=== PATIENT | female | born 1970 | race Caucasian/White ===

== ENCOUNTER 2020-09-25 11:27 | Day surgery (SDC) | payer BC ==
[2020-09-18 15:52] LABS: BASOPHILS % (AUTO) 0.5 % (0-1); EOSINOPHILS # (AUTO) 0.1 X10'3 (0-0.9); EOSINOPHILS % (AUTO) 1.1 % (0-6); LYMPHOCYTES # (AUTO) 1.6 X10'3 (1.1-4.8); LYMPHOCYTES % (AUTO) 21.4 % (21-51); MEAN CORPUSCULAR HEMOGLOBIN 31.1 PG (27.0-31.0); MEAN CORPUSCULAR HGB CONC 33.3 g/dL (33.0-36.5); MEAN CORPUSCULAR VOLUME 93.5 FL (78-98); MEAN PLATELET VOLUME 8.1 FL (7.4-10.4); MONOCYTES # (AUTO) 0.5 X10'3 (0-0.9); NEUTROPHILS # (AUTO) 5.4 X10'3 (1.8-7.7); PRE OP HEMATOCRIT 43.5 % (35.0-45.0); PRE OP HEMOGLOBIN 14.5 g/dL (12.0-16.0); PRE OP PLATELET COUNT 208 X10'3 (140-440); RED BLOOD COUNT 4.66 X10'6 (4.20-5.60)
[2020-09-18 16:06] LABS: ALBUMIN 3.9 G/DL (3.4-5.0); ALBUMIN/GLOBULIN RATIO 1.3 (1.1-1.5); ALKALINE PHOSPHATASE 80 IU/L (46-116); BLOOD UREA NITROGEN 14 MG/DL (7-18); CALCIUM 9.3 MG/DL (8.5-10.1); CHLORIDE 105 MMOL/L (99-107); PRE OP ALT 53 U/L (30-65); PRE OP ANION GAP 7 (8-16); PRE OP AST 18 U/L (10-37); PRE OP BILIRUB, TOTAL 0.3 MG/DL (0.0-1.0); PRE OP GLUCOSE 114 MG/DL (70-104); PRE OP POTASSIUM 4.4 MMOL/L (3.4-5.1); PRE OP SODIUM 141 MMOL/L (135-145); TOTAL CARBON DIOXIDE 29.2 MMOL/L (24-32); eGFR 89 ML/MIN
[2020-09-18 16:36] LABS: HCG SERUM QL NEGATIVE
[~2020-09-25] VITALS: Ht 154.9 cm; Wt 72.6 kg
[2020-09-25] VITALS (14 sets, daily range): BP systolic 109–147; BP diastolic 55–80
[~2020-09-25 11:27] MED LIST: ATOR40TA PO; CITA20TA28 PO; albuterol 2.5 MG/3 ML nebule NEB ONE; ceFOXitin 2GM-NS 100mL ADDvant 100 ML IV ONE; famotidine 20mg tablet PO ONE; ringers solution, lacted 1,000 ML IV SCH
[2020-09-25] MEDS ORDERED: oxyCODONE/APAP 5-325mg tablet PO ONE ×2 (13:55)
[2020-09-25] MEDS ORDERED: proCHLORperazine 10 MG/2 ml inj IV PRN (13:55)
[2020-09-25] MEDS ORDERED: morphine 2 MG/ML inj. syringe IV PRN (13:55)
[2020-09-25] MEDS ORDERED: HYDROmorphone/PF 0.2 MG/ML SYRINGE IV PRN ×2 (13:55)
[2020-09-25] MEDS ORDERED: meperidine/PF 25mg/ml syringe IV PRN (13:55)
[2020-09-25] MEDS ORDERED: labetalol 20mg/4ml (5mg/ml) syringe IV PRN (13:55)
[2020-09-25] MEDS ORDERED: LIDOcaine 1% W/epiNEPHrine 1:200,000 10ml vial ONE (13:55)
[2020-09-25] MEDS ORDERED: hydrALAZINE 20mg/ml inj. IV PRN (13:55)
[2020-09-25] MEDS ORDERED: ondansetron/PF 4mg/2ml inj IV PRN (13:55)
[2020-09-25] MEDS ORDERED: ringers solution, lacted 1,000 ML IV SCH (13:55)
[2020-09-25] MEDS ORDERED: midazolam 2 mg/2 ml injection ONE (14:05)
[2020-09-25] MEDS ORDERED: fentaNYL/PF 50MCG/1 ML 2ML syringe ONE (14:05)
[2020-09-25] MEDS ORDERED: ondansetron/PF 4mg/2ml inj ONE (14:19)
[2020-09-25] MEDS ORDERED: propofol inj 20 ML IV ONE ×2 (14:19→15:25)
[2020-09-25] MEDS ORDERED: dexamethasone sod phosphate 4mg/ml inj. ONE (14:19)
[2020-09-25] MEDS ORDERED: LIDOcaine 2% (20mg/ml) 5ml vial ONE (14:19)
[2020-09-25] MEDS ORDERED: ceFAZolin 1000mg inj ONE (14:38)
--- NOTE | 2020-09-25 15:35 | NUR ---
Received from OR via [facility] , accompanied by Anesthesiologist DR LEMONS and report given by Anesthesiolgist. PATIENT WAKING UP, PAINFUL UPON ARRIVAL-WILL MEDICATE, V/S WNL, NEUROVASCULAR CHECKS INTACT, 20G PIV R A/C, SCDS ON, PERIPAD WITH SCANT DRAINAGE CDI.
[2020-09-25] MEDS: morphine 4 MG/ML inj SYRINge IV PRN ×2 (15:40→17:23)
[2020-09-25] MEDS ORDERED: acetaminophen 1,000mg/100ml IV 100 ML IV ONE (16:25)
--- NOTE | 2020-09-25 18:25 | NUR ---
PATIENT A&OX4, MINIMAL PAIN 2/, V/S WNL, NEUROVASCULAR CHECKS INTACT, 20G PIV R A/C D/C WITH NO COMPLICATIONS OBSERVED. I HAVE REVIEWED D/C INSTRUCTIONS WITH PATIENT WHO HAS VERBALIZED UNDERSTANDING. PATIENT AND BELONGINGS D/C HOME WITH FAMILY TO TRANSPORT.
== END 2020-09-25 18:25 | disposition home or self-care (01) ==
LOC: PRE-OP 11:27 → PAS 18:25
PROVIDERS: ATTEND Obstetrics & Gynecology
DX: N92.0 Excessive and frequent menstruation with regular cycle (principal); N39.46 Mixed incontinence; N85.8 Other specified noninflammatory disorders of uterus; E78.00 Pure hypercholesterolemia, unspecified; F32.9 Major depressive disorder, single episode, unspecified; F41.9 Anxiety disorder, unspecified; Z87.891 Personal history of nicotine dependence; Z79.899 Other long term (current) drug therapy; Z88.5 Allergy status to narcotic agent; Z98.51 Tubal ligation status; Z98.890 Other specified postprocedural states; Z82.3 Family history of stroke; Z82.49 Family history of ischemic heart disease and other diseases of the circulatory system; Z81.8 Family history of other mental and behavioral disorders
CPT/HCPCS: 36415; 57288; 58563; 80053; 82948; 84703; 85025; 86885; 86900; 86901; A4649; C1758; C1771; J0131; J0690; J0694; J1100; J2001; J2250; J2270; J2405; J2704; J3010; J7030; A4355; A4618; A6258; A7000; J7120